=== PATIENT | male | born 1970 | race Caucasian/White ===

== ENCOUNTER 2024-04-01 19:37 | Emergency (ER) | payer OTHER, SELFPAY ==
--- NOTE | ~2024-04-01 | CT_ITS ---
EXAMINATION: CTA brain carotid DATE: 04/01/2024 21:33 INDICATION: Right hand numbness. TECHNIQUE: Computed tomographic angiography (CTA) of the head was performed without and with 100 mL O mnipaque-350 intravenous contrast. CTA of the neck was performed with intravenous contrast. Automated exposure control and iterative reconstruction technique were employed. The dose-length product was 1 806.53 mGy-cm. Maximum intensity projection and volume rendered 3D-reconstructions were created by vanessa technologist on a separate workstation. COMPARISON: None. FINDINGS: HEAD CTA: There is no intracranial hemorrhage, acute infarction, or abnormal intracranial mass lesion . The ventricles are normal in size. The paranasal sinuses are clear. The mastoid air cells are floridalma l. The orbits are normal. The vertebral arteries are codominant. There is no significant stenosis of basilar artery or the posterior cerebral arteries. There is no significant stenosis of the intracrani al internal carotid arteries or anterior or middle cerebral arteries. Anterior communicating artery i s normal. The posterior communicating arteries are normal. There is no aneurysm. NECK CTA: There is mild scarring at the lung apices. There are no pathologically enlarged lymph nodes . There is no significant stenosis of the vertebral arteries. There is no visible plaque in the proxi mal internal carotid arteries. There is 0% stenosis of the proximal right internal carotid artery rel ative to normal distal artery lumen diameter (NASCET criteria). There is 0% stenosis of the proximal left internal carotid artery relative to normal distal artery lumen diameter. There is severe cervica l spondylosis. IMPRESSION: 1. Normal brain. No aneurysm or significant intracranial canal stenosis. 2. 0% stenosis of the proximal internal carotid arteries relative to normal distal artery lumen diame ters (NASCET criteria). Reviewed, dictated and finalized at location E. IMPRESSION: 1. Normal brain. No aneurysm or significant intracranial canal stenosis. 2. 0% stenosis of the proximal internal carotid arteries relative to normal dis mynor artery lumen diameters (NASCET criteria).
[2024-04-01 19:46] VITALS: BP 138/96; PULSE 79; RESP 20; TEMP 36.4; O2SAT 100
[2024-04-01 20:00] VITALS: BP 142/82; PULSE 75; RESP 16; O2SAT 98
[2024-04-01 20:04] VITALS: BP 148/81; PULSE 75; RESP 16; O2SAT 100
--- NOTE | 2024-04-01 20:38 | ECG_ITS ---
Test Date: 2024-04-01 20:46:04 Measurements Intervals [place] Rate: 72 P: 50 NM: 172 QRS: 8 QRSD: 110 T: 34 QT: 365 QTc: 401 Interpretive Statements SINUS RHYTHM WITH SINUS ARRHYTHMIA INCOMPLETE RIGHT BUNDLE BRANCH BLOCK [90+ ms QRS DURATION, TERMINAL R IN V1/V2, 40+ ms S IN I/aVL/V4/V5/V6] No previous ECG available for comparison Electronically Signed On 04-02-2024 16:12:08 CDT by Fahad Brock M.D.
[2024-04-01 20:57] LABS: Basophils Absolute Auto 0.1 K/mm3 (0.0-0.1); Basophils Percent Auto 0.7 % (0.2-1.2); Eosinophils Absolute Auto 0.1 K/mm3 (0-0.3); Eosinophils Percent Auto 1.9 % (0-4.4); Hematocrit 45.3 % (42.0-52.0); Hemoglobin 15.2 g/dL (14.0-18.0); Immature Granulocyte Absolute 0.03 K/mm3 (0.00-0.031); Immature Granulocyte Percent A 0.4 % (0-0.5); Lymphocytes Absolute Auto 1.62 K/mm3 (0.9-3.2); Lymphocytes Percent Auto 22.3 % (18.3-44.2); Mean Corpuscular HGB Conc 33.6 g/dl (32-36); Mean Corpuscular Hemoglobin 31.3 pg (26-34); Mean Corpuscular Volume 93.2 fl (80-100); Mean Platelet Volume 10.8 fl (7.4-10.4); Monocytes Absolute Auto 0.9 K/mm3 (0.1-0.6); Monocytes Percent Auto 12.1 % (2.6-8.5); Neutrophils Absolute Auto 4.6 K/mm3 (1.3-6.7); Neutrophils Percent Auto 62.6 % (45.5-73.1); Platelet Count Result 225 k/mm3 (150-375); Red Blood Count 4.86 M/mm3 (4.6-6.20); Red Cell Distribution Width 12.1 % (11.5-14.5); White Blood Count 7.3 K/mm3 (4.5-10.0)
[2024-04-01 21:06] LABS: Alanine Aminotransferase 23 U/L (6-50); Albumin Level 4.1 g/dL (3.5-5.1); Alkaline Phosphatase 59 U/L (38-126); Anion Gap 7 mmol/L (4-12); Aspartate Amino Transferase 26 U/L (17-59); Bilirubin,Total 0.5 mg/dL (0.2-1.3); Blood Urea Nitrogen 13 mg/dL (9-20); Calcium 9.1 mg/dL (8.4-10.2); Carbon Dioxide 29 mmol/L (22-30); Chloride 102 mmol/L (98-107); Estimated CRCL calculation 101 ml/min; Estimated Glomerular Filt Rate > 60; Glucose 100 mg/dL (65-110); Magnesium 1.8 mg/dL (1.6-2.3); Potassium 4.3 mmol/L (3.4-5.0); Sodium 138 mmol/L (137-145)
[2024-04-01 21:17] LABS: Troponin I < 0.012 ng/mL (0.000-0.034)
--- NOTE | 2024-04-01 22:31 | ED.GENADULT ---
HPI - General Adult General Chief complaint: Neuro Symptoms/Deficit Stated complaint: R hand numbness/tingling x12 hours Time Seen by Provider: 04/01/24 20:23 History of Present Illness HPI narrative: Patient is a 53-year-old gentleman who presents emergency department with chief complaint of right hand numbness. Patient reports that he has had tingling in his 4th and 5th digit a reports that this makes it difficult and brisk things the patient states this started about 15 hours prior to arrival patient reports that he has no other weakness denies any other numbness or tingling patient reports he does have history of cardiac disease of but has no prior history of CVA. Related Data Allergies Allergy/AdvReac Type Severity Reaction Status Date / Time No Known Allergies Allergy Verified 04/01/24 19:50 Review of Systems Review of Systems: A 10 system review of systems was completed on the patient and is negative except for what is stated in the HPI. Nursing and ancillary documentation was reviewed. Exam Narrative: GENERAL: Well-appearing, well-nourished, and in no acute distress. HEAD: Normocephalic, atraumatic. EYES: PERRLA and EOMI. ENT: Nares clear, no rhinorrhea or epistaxis. Mucous membranes moist. NECK: Supple. CHEST: Clear to auscultation. No respiratory distress. HEART: Regular rate and rhythm. No murmur heard. Normal peripheral pulses. ABDOMEN: Soft, nontender, nondistended, normal active bowel sounds. EXTREMITIES: Normal range of motion. No edema. SKIN: Warm, dry, no rash. NEURO: No focal deficits. Alert and oriented x3. Decreased sensation in the ulnar nerve distribution of the right hand no facial droop no weakness in the forearm or upper arm or right leg speech is intact PSYCH: Normal mood and affect. Course Vital Signs Vital signs: Vital Signs Temperature 36.4 C L 04/01/24 19:46 Pulse Rate 79 04/01/24 19:46 Respiratory Rate 20 04/01/24 19:46 Blood Pressure 138/96 H 04/01/24 19:46 Pulse Oximetry 100 04/01/24 19:46 Oxygen Delivery Room Air 04/01/24 19:46 Temperature 36.4 C L 04/01/24 19:46 Pulse Rate 75 04/01/24 20:04 Respiratory Rate 16 04/01/24 20:04 Blood Pressure 148/81 H 04/01/24 20:04 Pulse Oximetry 100 04/01/24 20:04 Oxygen Delivery Room Air 04/01/24 19:46 Medical Decision Making MDM Narrative Medical decision making narrative: Differential diagnosis includes cervical radiculopathy, peripheral nerve compression, The patient's distribution is not consistent with CVA and the patient is out of the window from thrombolytics standpoint. Exam is consistent with a peripheral nerve particularly ulnar nerve distribution. The case was discussed with Neurology after CTA head and neck was obtained this showed no evidence of cervical nerve root compression no evidence of aneurysm and no evidence of stenosis or occlusion. EKG showed no acute ischemic changes laboratory studies are within normal limits troponin was negative The patient be discharged home to follow-up with neurology as an outpatient Vital Signs Vital Signs: Vital Signs Temperature 36.4 C L 04/01/24 19:46 Pulse Rate 79 04/01/24 19:46 Respiratory Rate 20 04/01/24 19:46 Blood Pressure 138/96 H 04/01/24 19:46 Pulse Oximetry 100 04/01/24 19:46 Oxygen Delivery Room Air 04/01/24 19:46 Temperature 36.4 C L 04/01/24 19:46 Pulse Rate 75 04/01/24 20:04 Respiratory Rate 16 04/01/24 20:04 Blood Pressure 148/81 H 04/01/24 20:04 Pulse Oximetry 100 04/01/24 20:04 Oxygen Delivery Room Air 04/01/24 19:46 Lab Data 04/01/24 20:50 04/01/24 20:50 Labs: Lab Results 04/01/24 04/01/24 04/01/24 Range/Units 20:50 20:50 20:50 WBC 7.3 (4.5-10.0) K/mm3 RBC 4.86 (4.6-6.20) M/mm3 Hgb 15.2 (14.0-18.0) g/dL Hct 45.3 (42.0-52.0) % MCV 93.2 (80-100) fl MCH 31.3 (26-34) pg MCHC 33.6 (32-36) g/dl
[2024-04-01 22:45] VITALS: BP 129/85; PULSE 76; RESP 16; O2SAT 98
== END 2024-04-01 22:45 | disposition home or self-care (01) ==
PROVIDERS: Emergency Provider Emergency Medicine
DX: R20.2 Paresthesia of skin (principal)
CPT/HCPCS: 36415; 70496; 70498; 80053; 83735; 84484; 85025; 85610; 85730; 93005; 99284; Q9967